=== PATIENT | male | born 1965 | race Caucasian/White ===

== ENCOUNTER 2016-10-06 19:34 | Emergency (ER) | payer BC ==
[2016-10-06 19:50] VITALS: BP 127/82
--- NOTE | 2016-10-06 20:22 | UC ---
Ear Complaint HPI - HPI Summary HPI Summary: 51 yo M with left ear pain worsening today. States he had his ear flushed a few days at the doctor's due to impacted cerumen. Pain has gotten worse since, feels full and left external ear feels warm. Has been using fluocinide ear drops that his doctor gave him for eczema last winter without relief. - History of Current Complaint Chief Complaint: UCEar Stated Complaint: EAR PAIN/JAW PAIN Time Seen by Provider: 10/06/16 19:51 Hx Obtained From: Patient Onset/Duration: Sudden Onset, Lasting Days, Still Present Severity Initially: Moderate Severity Currently: Moderate Pain Intensity: 5 Pain Scale Used: 0-10 Numeric Aggravating Factors: Nothing Alleviating Factors: Nothing Associated Signs/Symptoms: Positive: Swelling @ - left ear canal - Allergies/Home Medications Allergies/Adverse Reactions: Allergies Allergy/AdvReac Type Severity Reaction Status Date / Time Amoxicillin [From Augmentin] Allergy Rash Verified 10/06/16 19:50 Clavulanic Acid Allergy Rash Verified 10/06/16 19:50 [From Augmentin] Cyclobenzaprine Allergy Unknown Verified 10/06/16 19:50 [From Flexeril] Reaction Details Home Medications: Home Medications celeCOXIB CAP* [CeleBREX CAP*] 100 mg PO BID 10/06/16 [History Confirmed ] PMH/Surg Hx/FS Hx/Imm Hx Previously Healthy: No - arthritis, kidney stones - Surgical History Surgical History: Yes Surgery Procedure, Year, and Place: ORTHOSCOPIC RT.KNEE --[place]. DOUBLE HERNIA REPAIR/[id number]. [place] [id number] - Family History Known Family History: Positive: Other - arthritis in mother - Social History Alcohol Use: Occasionally Alcohol Amount: 3 TIMES A WEEK Substance Use Type: None Smoking Status (MU): Never Smoked Tobacco Review of Systems Constitutional: Negative Skin: Negative Eyes: Negative ENT: Ear Ache Respiratory: Negative Cardiovascular: Negative Gastrointestinal: Negative Genitourinary: Negative Motor: Negative Neurovascular: Negative Musculoskeletal: Negative Neurological: Negative Psychological: Negative All Other Systems Reviewed And Are Negative: Yes Physical Exam Triage Information Reviewed: Yes Appearance: Well-Appearing, Well-Nourished, Pain Distress Vital Signs: Initial Vital Signs Temp 98 F 10/06/16 19:44 Pulse 60 10/06/16 19:44 Resp 16 10/06/16 19:44 BP 127/82 10/06/16 19:44 Pulse Ox 98 10/06/16 19:44 Vital Signs Reviewed: Yes Eyes: Positive: Conjunctiva Clear ENT: Positive: Hearing grossly normal, TM red - left, Other: - left ear canal swollen, red, eroded Dental: Negative: Cervical Lymphadenopathy Neck: Positive: Supple, Nontender, No Lymphadenopathy Respiratory: Positive: No respiratory distress Cardiovascular: Positive: Brisk Capillary Refill Musculoskeletal: Positive: Strength Intact, ROM Intact Neurological: Positive: Alert, Muscle Tone Normal Psychological Exam: Normal Skin Exam: Normal Ear Complaint Course/Dx - Differential Dx/Diagnosis Differential Diagnosis/HQI/PQRI: Cerumen Impaction, Otitis Externa, Otitis Media Provider Diagnoses: otitis media. otitis externa Discharge - Discharge Plan Condition: Stable Disposition: HOME Prescriptions: Azithromycin TAB* [Zithromax TAB (Z-DARLING) 250 mg #6 tabs] 2 tab PO .TODAY, THEN 1 DAILY #1 darling Ciproflox/Dexameth OTIC.SUSP* [Ciprodex OTIC.SUSP*] 4 drop .SEE ORDER BID #1 [id number] Patient Education Materials: Otitis Externa (ED), Otitis Media (ED) Referrals: Nico Harrell MD [Primary Care Provider] - 2 Days
== END 2016-10-06 20:35 | disposition home or self-care (01) ==
LOC: UCCORT 19:34
DX: H66.92 Otitis media, unspecified, left ear (principal); H60.92 Unspecified otitis externa, left ear; Z87.442 Personal history of urinary calculi; Z88.1 Allergy status to other antibiotic agents
CPT/HCPCS: 99202; G0463